=== PATIENT | female | born 1950 ===

== ENCOUNTER → 2017-04-07 08:00 | Outpatient (CLI) | payer OTHER ==
[~2017-04-07 08:00] MED LIST: ALPRAZOLAM2 MG PO; AMILODIPINE PO; BUPROPION XL150 MG PO; COZAAR50 MG PO; HYDROCHLOROTHIA25 MG PO; OMEPRAZOLE20 M1 PO; PAROXETINE HCL10 MG PO; TRAZODONE HCL5 GM PO
== END | disposition home or self-care (01) ==
LOC: EKG 08:00 → ADM 11:30 → CIR.AMB 04-10 06:25 → EDSTATUS 04-10 11:30 → CIR.AMB 04-10 13:15
DX: I10 Essential (primary) hypertension (principal); D07.1 Carcinoma in situ of vulva; Z01.818 Encounter for other preprocedural examination

== ENCOUNTER → 2017-05-19 09:00 | Outpatient (CLI) | payer OTHER | END | disposition home or self-care (01) | LOC: ADM 08:30 → EKG 09:00 → CIR.AMB 05-22 05:35 → EDSTATUS 05-22 08:30 → CIR.AMB 05-22 10:15 | DX: Q79.8 Other congenital malformations of musculoskeletal system (principal); Z01.810 Encounter for preprocedural cardiovascular examination ==

== ENCOUNTER 2017-05-22 06:15 | Outpatient (CLI) | payer OTHER | END 2017-05-22 06:21 | disposition home or self-care (01) | LOC: LAB 06:15 | DX: E87.6 Hypokalemia (principal) ==